=== PATIENT | male | born 1975 | race Caucasian/White ===

== ENCOUNTER 2021-07-19 21:09 | Emergency (ER) | payer BC ==
--- NOTE | 2021-07-19 22:02 | EDM.PDOC ---
ED HPI GENERAL MEDICAL PROBLEM - General Chief Complaint: Genitourinary Problem Stated Complaint: SWOLLEN GROIN Time Seen by Provider: 07/19/21 21:25 Source of Information: Reports: Patient, RN, RN Notes Reviewed History Limitations: Reports: No Limitations - History of Present Illness INITIAL COMMENTS - FREE TEXT/NARRATIVE: Andrés is a 45 y/o male who presents to the ED via personal vehicle with complaints of swelling and pain to his scrotum. The patient reports he noted mild swelling two days ago at which time she attempted to "pop" a lesion to his inferior left scrotum which produced no drainage. He notes the swelling and erythema has progressively worsened over that time. Additionally, he notes chills and nausea without vomiting. He denies dizziness, chest palpitations, shortness of breath, or diarrhea. He denies dysuria, hematuria, or inability to urinate. He has taken ibuprofen which provided mild alleviation in chills, but did not improve pain. He denies history of recurrent infections or similar scrotal edema. He denies tobacco, alcohol, or recreational drug use. Scrotum Pain Score (Numeric/FACES): 4 - Related Data Allergies Allergy/AdvReac Type Severity Reaction Status Date / Time No Known Allergies Allergy Verified 07/19/21 21:14 Home Meds: Home Meds . [No Known Home Meds] 07/19/21 [History] Past Medical History - Past Health History Medical/Surgical History: Denies Medical/Surgical History - Infectious Disease History Infectious Disease History: Reports: Chicken Pox Social & Family History - Tobacco Use Tobacco Use Status *Q: Never Tobacco User Second Hand Smoke Exposure: No - Caffeine Use Caffeine Use: Reports: Soda - Recreational Drug Use Recreational Drug Use: No ED ROS GENERAL - Review of Systems Review Of Systems: Comprehensive ROS is negative, except as noted in HPI. ED EXAM, RENAL/ - Physical Exam Exam: See Below Exam Limited By: No Limitations General Appearance: Alert, No Apparent Distress Eye Exam: Bilateral Eye: EOMI, Normal Inspection, PERRL (3mm) Ears: Normal External Exam, Hearing Grossly Normal Nose: Normal Inspection, Normal Mucosa, No Blood Throat/Mouth: Normal Inspection, Normal Oropharynx, Normal Voice, No Airway Compromise Head: Atraumatic, Normocephalic Neck: Normal Inspection, Full Range of Motion Respiratory/Chest: No Respiratory Distress, Lungs Clear, Chest Non-Tender Cardiovascular: Normal Peripheral Pulses, Regular Rate, Rhythm, No Gallop, No Murmur, No Rub GI/Abdominal: Normal Bowel Sounds, Soft, Non-Tender, No Distention, No Abnormal Bruit, No Mass, Pelvis Stable. No: Guarding, Rigid, Rebound (Male) Exam: Scrotal Swelling, Scrotum Tenderness (L), Scrotum Tenderness (R), Testicular Tenderness (L), Testicular Tenderness (R). No: Hernia, Urethral Discharge Rectal (Males) Exam: Deferred Back Exam: Normal Inspection, Full Range of Motion Extremities: Normal Inspection, Normal Range of Motion, Normal Capillary Refill Neurological: Alert, Oriented, CN II-XII Intact, Normal Cognition, Normal Gait, No Motor/Sensory Deficits Psychiatric: Normal Affect, Normal Mood Skin Exam: Warm, Dry, Intact, Normal Color, No Rash. No: Cyanosis, Jaundice, Mottled, Pallor Course - Vital Signs Last Recorded V/S: Last Vital Signs Temp 96.8 F L 07/19/21 21:17 Pulse 102 H 07/19/21 21:17 Resp 20 07/19/21 21:17 BP 127/84 07/19/21 21:17 Pulse Ox 98 07/19/21 21:17 - Orders/Labs/Meds Orders: Active Orders 24 hr Category Date Time Status CULTURE BLOOD [BC] Stat Lab 07/19/21 21:50 Received CULTURE BLOOD [BC] Stat Lab 07/19/21 21:55 Received Blood Culture x2 Reflex Set [OM.PC] Stat Oth 07/19/21 21:37 Ordered Labs: Laboratory Tests 07/19/21 07/19/21 07/19/21 Range/Units 21:23 21:50 21:50 WBC 18.6 H (5.0-10.0) 10^3/uL RBC 4.84 (4.6-6.2) 10^6/uL Hgb 14.5 (14.0-18.0) g/dL Hct 42.3 (40.0-54.0) % MCV 87.4 (80-100) fL MCH 30.0 (27.0-34.0) pg MCHC 34.3 (33.0-35.0) g/dL Plt Count 285 (150-450) 10^3/uL Neut % (Auto) 82.1 H (42.2-75.2) % Lymph % (Auto) 7.1 L (20.5-50.1) % Banks % (Auto) 10.2 H (2-8) % Eos % (Auto) 0.4 L (1.0-3.0) % Baso % (Auto) 0.2 (0.0-1.0) % Sodium 139 (136-145) mmol/L Potassium 3.3 L (3.5-5.1) mmol/L Chloride 100 (98-107) mmol/L Carbon Dioxide 29 (21-32) mmol/L Anion Gap 13.3 H (7-13) mEq/L BUN 15 (7-18) mg/dL Creatinine 1.24 (0.70-1.30) mg/dL Est Cr Clr Drug Dosing 80.12 mL/min Estimated GFR (MDRD) > 60 BUN/Creatinine Ratio 12.1 (No establ ref range) Glucose 131 H (70-99) mg/dL Lactic Acid (0.4-2.0) mmol/L Calcium 8.8 (8.5-10.1) mg/dL Total Bilirubin 0.9 (0.2-1.0) mg/dL AST 41 H (15-37) U/L ALT 80 H (16-63) U/L Alkaline Phosphatase 145 H (46-116) U/L C-Reactive Protein 8.5 H (0.0-0.9) mg/dL Total Protein 7.4 (6.4-8.2) g/dL Albumin 3.4 (3.4-5.0) g/dL Globulin 4.0 Albumin/Globulin Ratio 0.9 Urine Color Yellow (YELLOW) Urine Appearance Clear (CLEAR) Urine pH 5.5 (5.0-9.0) Ur Specific [place] >= 1.030 (1.005-1.030) Urine Protein 100 H (NEGATIVE) Urine Glucose (UA) Negative (NEGATIVE) Urine Ketones Trace H (NEGATIVE) Urine Occult Blood Negative (NEGATIVE) Urine Nitrite Negative (NEGATIVE) Urine Bilirubin Small H (NEGATIVE) Urine Urobilinogen 1.0 (0.2-1.0) mg/dL Ur Leukocyte Esterase Negative (NEGATIVE) Urine RBC 0-5 (0-5) /HPF Urine WBC 0-5 (0-5/HPF) /HPF Ur Epithelial Cells Moderate H (NOT SEEN) /HPF Amorphous Sediment Few (NOT SEEN) /HPF Urine Bacteria Many H (0-FEW/HPF) /HPF 07/19/21 Range/Units 21:50 WBC (5.0-10.0) 10^3/uL RBC (4.6-6.2) 10^6/uL Hgb (14.0-18.0) g/dL Hct (40.0-54.0) % MCV (80-100) fL MCH (27.0-34.0) pg MCHC (33.0-35.0) g/dL Plt Count (150-450) 10^3/uL Neut % (Auto) (42.2-75.2) % Lymph % (Auto) (20.5-50.1) % Banks % (Auto) (2-8) % Eos % (Auto) (1.0-3.0) % Baso % (Auto) (0.0-1.0) % Sodium (136-145) mmol/L Potassium (3.5-5.1) mmol/L Chloride (98-107) mmol/L Carbon Dioxide (21-32) mmol/L Anion Gap (7-13) mEq/L BUN (7-18) mg/dL Creatinine (0.70-1.30) mg/dL Est Cr Clr Drug Dosing mL/min Estimated GFR (MDRD) BUN/Creatinine Ratio (No establ ref range) Glucose (70-99) mg/dL Lactic Acid 0.9 (0.4-2.0) mmol/L Calcium (8.5-10.1) mg/dL Total Bilirubin (0.2-1.0) mg/dL AST (15-37) U/L ALT (16-63) U/L Alkaline Phosphatase (46-116) U/L C-Reactive Protein (0.0-0.9) mg/dL Total Protein (6.4-8.2) g/dL Albumin (3.4-5.0) g/dL Globulin Albumin/Globulin Ratio Urine Color (YELLOW) Urine Appearance (CLEAR) Urine pH (5.0-9.0) Ur Specific [place] (1.005-1.030) Urine Protein (NEGATIVE) Urine Glucose (UA) (NEGATIVE) Urine Ketones (NEGATIVE) Urine Occult Blood (NEGATIVE) Urine Nitrite (NEGATIVE) Urine Bilirubin (NEGATIVE) Urine Urobilinogen (0.2-1.0) mg/dL Ur Leukocyte Esterase (NEGATIVE) Urine RBC (0-5) /HPF Urine WBC (0-5/HPF) /HPF Ur Epithelial Cells (NOT SEEN) /HPF Amorphous Sediment (NOT SEEN) /HPF Urine Bacteria (0-FEW/HPF) /HPF Meds: Medications Discontinued Medications Generic Name Dose Route Start Last Admin Trade Name Freq PRN Reason Stop Dose Admin Acetaminophen 1,000 mg 07/19/21 23:52 07/19/21 23:55 Acetaminophen 500 Mg Tab PO 07/19/21 23:53 1,000 mg ONETIME ONE Administration Clindamycin HCl 300 mg 07/19/21 23:42 07/19/21 23:54 Clindamycin Hcl 150 Mg Cap PO 07/19/21 23:43 300 mg ONETIME ONE Administration Doxycycline Monohydrate 100 mg 07/19/21 23:43 07/19/21 23:54 Doxycycline Monohydrate 100 Mg Cap PO 07/19/21 23:44 100 mg ONETIME ONE Administration Iopamidol 100 ml 07/19/21 22:19 07/19/21 22:50 Iopamidol 612 Mg/Ml 100 Ml Bottle IVPUSH 07/19/21 22:20 100 ml ONETIME ONE Administration - Re-Assessments/Exams Free Text/Narrative Re-Assessment/Exam: 07/19/[address] to r/o gas or abscess formation in the scrotum. Findings of examination, lab work, and imaging reviewed with patient. Will treat scrotal cellulitis with doxycycline and clindamycin. Supportive cares discussed. Patient instructed to follow up with primary care provider regarding todays visit. Red flag signs and symptoms which would warrant immediate reevaluation reviewed. Patient verbalized understanding and agreement with the plan of care. Departure - Departure Time of Disposition: 23:49 Disposition: Home, Self-Care 01 Condition: Good Clinical Impression: Cellulitis of scrotum - Discharge Information *PRESCRIPTION DRUG MONITORING PROGRAM REVIEWED*: Not Applicable *COPY OF PRESCRIPTION DRUG MONITORING REPORT IN PATIENT DEB: Not Applicable Instructions: Cellulitis, Adult Forms: ED Department Discharge Additional Instructions: Rx: doxycycline 100mg (#20) Rx: clindamycin 300mg (#40) 1.) Start your antibiotics tomorrow morning and continue, as prescribed, until all pills are gone. Do not stop, even as symptoms improve. 2.) Continue to monitor for worsening swelling, pain, or redness to the infected region; return to the emergency department with any worsening symptoms. 3.) You may take ibuprofen (Advil/Motrin) 400-800mg every six hours, as pain and swelling persist. You may also take acetaminophen (Tylenol) 650-1000mg every six hours, as pain persists. You may stagger these medications so you are taking a dose of either every three hours. Sepsis Event Note (ED) - Evaluation Sepsis Screening Result: No Definite Risk - Focused Exam Vital Signs: Vital Signs Temp Pulse Resp BP Pulse Ox 07/19/21 21:17 96.8 F L 102 H 20 127/84 98 - My Orders Last 24 Hours: My Active Orders 07/19/21 21:37 Blood Culture x2 Reflex Set [OM.PC] Stat 07/19/21 21:50 CULTURE BLOOD [BC] Stat 07/19/21 21:55 CULTURE BLOOD [BC] Stat - Assessment/Plan Last 24 Hours: My Active Orders 07/19/21 21:37 Blood Culture x2 Reflex Set [OM.PC] Stat 07/19/21 21:50 CULTURE BLOOD [BC] Stat 07/19/21 21:55 CULTURE BLOOD [BC] Stat
[2021-07-19 22:12] LABS: ANION GAP 13.3 mEq/L (7-13); CHLORIDE,CL 100 mmol/L (98-107); SODIUM,NA 139 mmol/L (136-145)
[2021-07-19] MEDS ORDERED: Iopamidol 612 MG/ML 100 ML Bottle IVPUSH ONE (22:19)
--- NOTE | 2021-07-19 23:35 | CT ---
PROCEDURE INFORMATION: Exam: CT Pelvis With Contrast Exam date and time: 07/19/2021 10:37 PM Age: 45 years old Clinical indication: Other: R/O abscess or gas formation in scrotum; Lt inferior scrotum TECHNIQUE: Imaging protocol: Computed tomography images of the pelvis with intravenous contrast. Total images: 380 Radiation optimization: All CT scans at this facility use at least one of these dose optimization techniques: automated exposure control; mA and/or kV adjustment per patient size (includes targeted exams where dose is matched to clinical indication); or iterative reconstruction. Contrast material: ISOVUE 300; Contrast volume: 100 ml; Contrast route: INTRAVENOUS (IV); COMPARISON: No relevant prior studies available. FINDINGS: Stomach and bowel: The visualized lower abdominal small bowel is nondilated with no evidence of obstruction. There is mild submucosal fatty transformation in the distal ileum which suggests chronic changes of remote prior enteritis, with no evidence of active enteritis currently. Visualized distal colonic segments demonstrate no acute abnormality. There is moderate distal colonic diverticulosis without changes of diverticulitis. Appendix: The appendix is normal in caliber and demonstrates no evidence of appendicitis. Intraperitoneal space: No free fluid or air. Vasculature: No acute process. No abdominal aortic aneurysm. Lymph nodes: No adenopathy. Urinary bladder: Unremarkable as visualized. Reproductive: Unremarkable as visualized. Bones/joints: No acute osseous abnormalities. Bilateral SI joint sclerosis and articular erosions suggesting changes of chronic sacroiliitis. Given the changes in the distal ileum, this may indicate chronic inflammatory bowel arthropathy, although other chronic Sir negative spondyloarthropathy is could produce this appearance. No gross changes to suggest active sacroiliitis currently. Soft tissues: Very small fatty umbilical hernia and small bilateral fatty inguinal hernias. No evidence of associated bowel herniation or strangulation. There is soft tissue swelling in the scrotum, greater on the left, extending into the adjacent subcutaneous fat in the anterior perineum, consistent with cellulitis or edema. No discrete fluid collections suggestive of abscess or hematoma were seen. There is no soft tissue air to suggest gangrenous changes. No deep intrapelvic extension of the process. IMPRESSION: 1. Scrotal soft tissue swelling extending into the leftward anterior perineal subcutaneous fat near the scrotum, consistent with cellulitis or edema. No fluid collections suggestive of abscess or hematoma. There is no soft tissue air to suggest gangrene. No intrapelvic extension. 2. Chronic appearing submucosal fatty transformation in the distal ileum suggesting changes of prior enteritis. No evidence of active enteritis. 3. Evidence of chronic bilateral sacroiliitis, possibly chronic inflammatory bowel arthropathy given the chronic changes in the distal small bowel, versus other chronic spondyloarthropathy. Consider follow-up rheumatologic consult as clinically indicated. 4. Moderate distal colonic diverticulosis without diverticulitis. 5. Additional nonemergent findings detailed above.
[2021-07-19] MEDS ORDERED: Clindamycin HCl 150 MG Cap PO ONE (23:42)
[2021-07-19] MEDS ORDERED: Doxycycline Monohydrate 100 MG Cap PO ONE (23:43)
[2021-07-19] MEDS ORDERED: Acetaminophen 500 MG Tab PO ONE (23:52)
== END 2021-07-20 00:01 | disposition home or self-care (01) ==
LOC: DL.ED 21:09
DX: N49.2 Inflammatory disorders of scrotum (principal)
CPT/HCPCS: 36415; 72193; 80053; 81001; 83605; 85025; 86140; 87040; 99284; A9270; Q9967